=== PATIENT | female | born 1990 | race Caucasian/White ===

== ENCOUNTER 2017-05-31 08:18 | Emergency (ER) | payer MEDICAID, OTHER ==
--- OUTSIDE RECORDS SUMMARY | 2017-05-31 08:31 | XMS REPORT ---
:1990 External Reference #:[id number] [facility] [employer] Address [address] [address] Phone [phone] Care Team Providers Name Role Phone David Westbrook MD Primary Care Physician Unavailable Payers Type Date Identification Payment Subscriber Numbers Provider Workers Compensation Effective: PayID: [id number] Nsyigrady Marleni Rebecca 05/05/2016 [place] Onset: 05/05/2016 [id number] [place] [address] Medigap Part B Effective: Policy Number: BS Jose Yepez Rebecca 05/15/2013 [id number] Deacon PayID: [id number] [address] [address] [place] [id number] Medigap Part B Effective: 12/13/2012 Policy Number: BS Jose Schuster [id number] Kandice Expires: 01/20/2017 PayID: [id number] [address] [address] [place] [id number] Problems Date Description Provider Status Onset: 02/06/2017 Stress fracture of tibia Gerard Stokes MD Active Onset: 02/06/2017 Nontraumatic compartment syndrome of lower Gerard Sotkes MD Active limb Onset: 05/16/2017 Nontraumatic compartment syndrome of left Gerard Stokes MD Active lower extremity Onset: 05/16/2017 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 Social History Type Date Description Comments Smoking Patient smoking status is unknown Allergies, Adverse Reactions, Alerts Date Description Reaction Status Severity Comments 04/04/2017 NKDA active Medications Medication Date Status Form Strength Qnty SIG Indications Ordering Provider Humalog Active pump Unknown Vital Signs Date Vital Result Comment 05/16/2017 Height 67 inches 5'7" Weight 180.00 lb Respiratory Rate 16 /min Body Temperature 97.3 F Pain Level 2 BMI (Body Mass Index) 28.2 kg/m2 04/04/2017 Heart Rate 90 /min BP Systolic Sitting 118 mmHg BP Diastolic Sitting 68 mmHg Body Temperature 97.1 F 03/07/2017 Height 67 inches 5'7" Weight 180.00 lb BP Systolic 116 mmHg BP Diastolic 80 mmHg Respiratory Rate 20 /min Pain Level 0 BMI (Body Mass Index) 28.2 kg/m2 02/06/2017 Height 67 inches 5'7" Weight 180.00 lb Heart Rate 89 /min Respiratory Rate 16 /min Body Temperature 98.2 F Pain Level 5 BMI (Body Mass Index) 28.2 kg/m2 01/21/2017 Height 67 inches 5'7" Weight 180.00 lb Heart Rate 96 /min BP Systolic 126 mmHg BP Diastolic 80 mmHg Body Temperature 97.6 F BMI (Body Mass Index) 28.2 kg/m2 Results Description No Information Procedures Date CPT Code Description Status 02/06/2017 68896 CLSD TX Distal Fib FX (Lateral Malleolus) w/o Completed manipulation Encounters Type Date Location Provider CPT E/M Dx Office Visit 01/21/2017 [facility] [place] [address] M25.572 3:00p C.M.A. R25.2 Office Visit 02/06/2014 12:02p [facility], [place] [address] 584.9 Hospitalists 599.0 250.00 Office Visit 08/13/2013 2:20p [facility], Stefanie Augustine, [address] 787.01 Hospitalists N.P. [phone] Office Visit 08/12/2013 2:20p [facility] Sergio Nenana, [address] 787.01 Assoc, Hospitalists N.P. 590.80 250.01 Plan of Care 05/16/2017 - Gerard Stokes, [id number] Stress fracture, left fibula, subs for fx w routn healFollow up:Follow Up: As [id number] Nontraumatic compartment syndrome of right lower [id number] Nontraumatic compartment syndrome of left lower extremity
[2017-05-31 08:54] VITALS: BP 127/90
--- NOTE | 2017-05-31 09:50 | UC ---
Nicki No Nilda, scribed for Aaron Dalton MD on 05/31/17 at 0911 . FLU HPI - HPI Summary HPI Summary: This patient is a 27 year old F presenting to [facility] with a chief complaint of constant flu-like symptoms since yesterday. The patient rates the pain 0/10 in severity. Symptoms aggravated and alleviated by nothing. Patient reports fatigue , diaphoresis, fever, sore throat, body aches, and chills, but denies cough. Flu vaccine is not UTD. - History of Current Complaint Chief Complaint: UCGeneralIllness Stated Complaint: FLU SYMPTOMS Time Seen by Provider: 05/31/17 09:00 Hx Obtained From: Patient Hx Last Menstrual Period: 05/24/17 Onset/Duration: Sudden Onset, Lasting Days, Still Present Pain Intensity: 0 Pain Scale Used: 0-10 Numeric Associated Signs & Symptoms: Positive: Fever, Myalgia, Sore Throat. Negative: Cough - Allergy/Home Medications Allergies/Adverse Reactions: Allergies Allergy/AdvReac Type Severity Reaction Status Date / Time No Known Allergies Allergy Verified 05/31/17 08:54 PMH/Surg Hx/FS Hx/Imm Hx Endocrine History: Diabetes - Surgical History Surgical History: None - Family History Known Family History: Positive: Other - Mother - thyroid CA Negative: Diabetes - Social History Alcohol Use: Weekly Substance Use Type: None Smoking Status (MU): Never Smoked Tobacco Have You Smoked in the Last Year: No - Immunization History Most Recent Influenza Vaccination: NEVER Most Recent Tetanus Shot: UNKNOWN Most Recent Pneumonia Vaccination: NEVER Review of Systems Constitutional: Fever, Chills, Fatigue Skin: Other - diaphoresis ENT: Sore Throat Respiratory: Other - negative cough Musculoskeletal: Myalgia All Other Systems Reviewed And Are Negative: Yes Physical Exam Triage Information Reviewed: Yes Vital Signs: Initial Vital Signs Temp 97.9 F 05/31/17 08:48 Pulse 91 05/31/17 08:48 Resp 16 05/31/17 08:48 BP 127/90 05/31/17 08:48 Pulse Ox 100 05/31/17 08:48 Vital Signs Reviewed: Yes - Additional Comments VITAL SIGNS: Reviewed. GENERAL: Patient is a well developed and nourished F who is lying comfortable in the stretcher. Patient is not in any acute respiratory distress. HEAD AND FACE: Normocephalic EYES: PERRLA, EOMI x 2. EARS: Hearing grossly intact. MOUTH: Oropharynx within normal limits. NECK: Supple, trachea is midline, no adenopathy, no JVD, no carotid bruit. CHEST: Symmetric, no tenderness at palpation LUNGS: Clear to auscultation bilaterally. No wheezing or crackles. CVS: Regular rate and rhythm, S1 and S2 present, no murmurs or gallops appreciated. ABDOMEN: Soft, non-tender. Bowel sounds are normal. No abdominal abnormal pulsations. EXTREMITIES: Full ROM in all major joints, no edema, no cyanosis or clubbing. NEURO: Alert and oriented x 3. No acute neurological deficits. Speech is normal and follows commands. SKIN: Dry and warm Re-Evaluation - Re-Evaluation First Eval Re-Evaluation Time: 09:27 Comment: Reviewed lab results with patient. Flu Course/Dx - Course Course Of Treatment: This patient is a 27 year old F presenting to [facility] with a chief complaint of constant flu-like symptoms since yesterday. The patient rates the pain 0/10 in severity. Symptoms aggravated and alleviated by nothing. Patient reports fatigue, diaphoresis, fever, sore throat, body aches, and chills , but denies cough. Flu vaccine is not UTD. Influenza A and B are negative. Medications given. The patient is hemodynamically stable, alert and oriented x3. I discussed all the findings and test results with the patient. Patient was instructed to return to the urgent care or go to ER immediately if any of the symptoms return or worsens. Plan of care was discussed with the patient and patient understands and agrees. All questions were answered to patient satisfaction. There were no further complaints or concerns. - Differential Dx/Diagnosis Provider Diagnoses: Viral Syndrome Discharge - Discharge Plan Condition: Stable Disposition: HOME Patient Education Materials: Viral Syndrome (ED) Forms: *Work Release Referrals: David Westbrook MD [Primary Care Provider] - Additional Instructions: Take Ibuprofen or Tylenol for fever or pain Increase your fluid intake Return to the UC if symptoms worsen The documentation as recorded by the Nicki kumari Nilda accurately reflects the service I personally performed and the decisions made by me, aAron Dalton MD.
== END 2017-05-31 09:45 | disposition home or self-care (01) ==
LOC: UCEAST 08:18
DX: B34.9 Viral infection, unspecified (principal)
CPT/HCPCS: 87502; 99212; G0463